=== PATIENT | female | born 1970 | race Caucasian/White ===

== ENCOUNTER 2020-01-01 18:40 | Emergency (ER) | payer BC ==
[~2020-01-01] VITALS: Ht 162.6 cm; Wt 90.0 kg
[~2020-01-01 18:40] MED LIST: ALBU18HF2 IH; BAC10T PO; DICL100G15 TOP; ESCI5TAB PO; GABA-341 PO; GEN0.3OS OP; LORA10TA65 PO; NORCO10T PO; POLY17PO10 PO; PRED10TA23 PO; SUCR1ORA2 PO; WEL75T PO; ZOF4T PO
--- NOTE | 2020-01-01 19:34 | NUR ---
Pt reports she is here for dental pain. Pt also reports she was recently out of work for cough and cold symptoms and now is feeling better and wants to return to work but needs a note to clear her for work.
[2020-01-01] MEDS ORDERED: CLIN-97 PO (19:55)
[2020-01-01 20:14] VITALS: BP 154/86
== END 2020-01-01 20:11 | disposition home or self-care (01) ==
LOC: ER 18:41
DX: K08.89 Other specified disorders of teeth and supporting structures (principal); R05 Cough; J45.909 Unspecified asthma, uncomplicated; G89.29 Other chronic pain; F17.200 Nicotine dependence, unspecified, uncomplicated; Z98.0 Intestinal bypass and anastomosis status; Z98.890 Other specified postprocedural states; Z56.0 Unemployment, unspecified; Z88.6 Allergy status to analgesic agent; Z79.2 Long term (current) use of antibiotics; Z79.899 Other long term (current) drug therapy
CPT/HCPCS: 99283

== ENCOUNTER 2023-07-23 20:18 | Emergency (ER) | payer BC, MEDICAID ==
[~2023-07-23] VITALS: Ht 162.6 cm; Wt 77.3 kg
[~2023-07-23 20:18] MED LIST changes: +CLIN-97 PO
[2023-07-23 20:28] VITALS: BP 129/80; PULSE 93; RESP 16; TEMP 98.4; O2SAT 98
== END 2023-07-24 00:10 | disposition left against medical advice (07) ==
LOC: ER 20:19
DX: R56.9 Unspecified convulsions (principal); Z53.21 Procedure and treatment not carried out due to patient leaving prior to being seen by health care provider
CPT/HCPCS: 99281

== ENCOUNTER 2024-08-20 14:42 | Emergency (ER) | payer MEDICAID ==
[~2024-08-20] VITALS: Ht 162.6 cm; Wt 81.8 kg
[2024-08-20] MEDS: dexamethasone sod phosphate 10mg/ml inj IV STA ×2 (15:28→17:50)
[2024-08-20 15:38] LABS: BASOPHILS # (AUTO) 0.1 X10'3 (0-0.2); BASOPHILS % (AUTO) 0.9 % (0-1); EOSINOPHILS # (AUTO) 1.1 X10'3 (0-0.9); EOSINOPHILS % (AUTO) 10.4 % (0-6); HEMOGLOBIN 12.9 g/dl (12.0-16.0); LYMPHOCYTES # (AUTO) 1.4 X10'3 (1.1-4.8); MEAN CORPUSCULAR HEMOGLOBIN 23.6 PG (27.0-31.0); MEAN CORPUSCULAR HGB CONC 31.5 g/dL (33.0-36.5); MEAN PLATELET VOLUME 8.6 FL (7.4-10.4); MONOCYTES # (AUTO) 0.8 X10'3 (0-0.9); MONOCYTES % (AUTO) 7.6 % (2-12); NEUTROPHILS # (AUTO) 7.5 X10'3 (1.8-7.7); NEUTROPHILS % (AUTO) 68.1 % (42-75); PLATELET COUNT 272 X10'3 (140-440); RED BLOOD COUNT 5.46 X10'6 (4.20-5.60); RED CELL DISTRIBUTION WIDTH 15.8 % (11.5-14.5)
[2024-08-20 15:42] LABS: ALBUMIN 3.9 G/DL (3.4-5.0); ANION GAP 7 (8-16); BLOOD UREA NITROGEN 7 MG/DL (7-18); BUN/CREATININE RATIO 8.6 (10.0-20.0); CALCIUM 9.4 MG/DL (8.5-10.1); CHLORIDE 99 MMOL/L (99-107); CREATININE 0.81 MG/DL (0.40-0.90); GLUCOSE 154 MG/DL (70-104); POTASSIUM 4.2 MMOL/L (3.5-5.1); PRO BRAIN NATRIURETIC PEPTIDE 59 PG/ML (0-125); SODIUM 133 MMOL/L (135-145); TOTAL CARBON DIOXIDE 27.3 MMOL/L (24-32); eCRCL 69 ML/MIN; eGFR 74 ML/MIN
[2024-08-20 15:49] VITALS: BP 139/90; TEMP 97.5
[2024-08-20] MEDS: ipratropium/albuterol 3ml nebule NEB ONE (15:51)
[2024-08-20 15:53] VITALS: PULSE 114; RESP 20; O2SAT 98
[2024-08-20 16:04] VITALS: PULSE 107; RESP 18; O2SAT 95
[2024-08-20] MEDS: albuterol 2.5 MG/3 ML nebule CONTNEB PRN (16:10)
[2024-08-20 16:13] VITALS: PULSE 105; RESP 20; O2SAT 95
[2024-08-20] MEDS ORDERED: BUDE10.2 INH (16:49)
[2024-08-20] MEDS: magnesium sulf-water 2g/50mL 50 ML IV ONE (17:04)
[2024-08-20 17:14] VITALS: PULSE 119; RESP 24; O2SAT 95
[2024-08-20 19:00] VITALS: PULSE 68; RESP 18; O2SAT 97
== END 2024-08-20 19:07 | disposition home or self-care (01) ==
LOC: ER 14:42
DX: J45.901 Unspecified asthma with (acute) exacerbation (principal); Z88.5 Allergy status to narcotic agent; Z88.6 Allergy status to analgesic agent; Z88.8 Allergy status to other drugs, medicaments and biological substances
CPT/HCPCS: 36415; 71046; 80048; 83605; 83880; 85025; 94640; 96365; 96375; 96376; 99284; J1100; 94760; A7015

== ENCOUNTER 2024-12-03 07:28 | Emergency (ER) | payer MEDICAID ==
[~2024-12-03] VITALS: Ht 162.6 cm; Wt 85.6 kg
[~2024-12-03 07:28] MED LIST changes: +BUDE10.2 INH
[2024-12-03 07:29] VITALS: TEMP 98.4
[2024-12-03 09:21] VITALS: BP 136/75; PULSE 105; O2SAT 94
[2024-12-03] MEDS: ketorolac trometh 30MG/ML vial 30 MG/ML VIAL IM ONE (09:23)
[2024-12-03] MEDS: dexamethasone sod phosphate 10mg/ml inj IM STA (09:26)
[2024-12-03 09:28] VITALS: RESP 15
== END 2024-12-03 09:36 | disposition home or self-care (01) ==
LOC: ER 07:28
DX: B34.9 Viral infection, unspecified (principal); J45.909 Unspecified asthma, uncomplicated; G43.909 Migraine, unspecified, not intractable, without status migrainosus; G89.29 Other chronic pain; Z56.0 Unemployment, unspecified; Z79.899 Other long term (current) drug therapy; Z88.6 Allergy status to analgesic agent; Z98.890 Other specified postprocedural states; Z20.822 Contact with and (suspected) exposure to COVID-19
CPT/HCPCS: 36415; 71045; 87502; 87503; 87811; 96372; 99284; J1100; J1885